=== PATIENT | female | born 1945 | race Two or more races ===

== ENCOUNTER → 2020-07-20 | Outpatient (CLI) | payer OTHER ==
[2020-07-20 09:15] LABS: MEAN CORPUSCULAR HEMOGLOBIN 31.6 pg (27.0-34.8); MEAN CORPUSCULAR HGB CONC 33.1 g/dL (32.4-35.8); MEAN PLATELET VOLUME 8.1 fL (7.4-10.4); PLATELET COUNT 283 x10^3/uL (130-400); RED BLOOD COUNT 4.08 x10^6/uL (3.82-5.3); RED CELL DISTRIBUTION WIDTH 13.2 % (9.6-15.2)
[2020-07-20 09:27] LABS: ALBUMIN 3.9 g/dL (3.4-5.0); ANION GAP 7 mmol/L (5-15); CALCIUM 9.5 mg/dL (8.5-10.1); CHLORIDE 109 mmol/L (98-107)
[2020-07-20 09:32] LABS: ALANINE AMINOTRANSFERASE 22 U/L (12-78); ALKALINE PHOSPHATASE 72 U/L (45-117); BILIRUBIN,TOTAL 0.6 mg/dL (0.2-1.0); CHOL/HDL RATIO 2.2; CHOLESTEROL, TOTAL 149 mg/dL (140-239); CREATININE 1.05 mg/dL (0.55-1.02); HDL CHOL % 46 % (28-40); HDL CHOLESTEROL (DIRECT) 69 mg/dL (40-60); LDL CHOLESTEROL,CALCULATED 55 mg/dL (54-169); LDL/HDL RATIO 0.8 (0.5-3.0); TOTAL PROTEIN 8.3 g/dL (6.4-8.2); TRIGLYCERIDES 124 mg/dL (50-200); VLDL CHOLESTEROL 25 mg/dL (0-25)
== END | disposition home or self-care (01) ==
LOC: LAB 08:48
PROVIDERS: ATTEND Family Medicine
DX: E11.22 Type 2 diabetes mellitus with diabetic chronic kidney disease (principal); I12.9 Hypertensive chronic kidney disease with stage 1 through stage 4 chronic kidney disease, or unspecified chronic kidney disease; E11.69 Type 2 diabetes mellitus with other specified complication; N18.2 Chronic kidney disease, stage 2 (mild)
CPT/HCPCS: 36415; 80053; 80061; 83036; 85027

== ENCOUNTER → 2020-09-30 | Outpatient (CLI) | payer OTHER ==
[2020-09-30 07:26] LABS: MEAN CORPUSCULAR HEMOGLOBIN 31.8 pg (27.0-34.8); MEAN CORPUSCULAR HGB CONC 32.8 g/dL (32.4-35.8); MEAN PLATELET VOLUME 7.9 fL (7.4-10.4); PLATELET COUNT 308 x10^3/uL (130-400); RED BLOOD COUNT 4.25 x10^6/uL (3.82-5.3); RED CELL DISTRIBUTION WIDTH 12.7 % (9.6-15.2)
[2020-09-30 07:39] LABS: ALBUMIN 4.1 g/dL (3.4-5.0); ANION GAP 6 mmol/L (5-15); CALCIUM 9.5 mg/dL (8.5-10.1); CHLORIDE 106 mmol/L (98-107)
[2020-09-30 07:43] LABS: ALANINE AMINOTRANSFERASE 20 U/L (12-78); ALKALINE PHOSPHATASE 77 U/L (45-117); BILIRUBIN,TOTAL 0.5 mg/dL (0.2-1.0); CHOL/HDL RATIO 2.1; CHOLESTEROL, TOTAL 160 mg/dL (140-239); CREATININE 0.99 mg/dL (0.55-1.02); HDL CHOL % 48 % (28-40); HDL CHOLESTEROL (DIRECT) 77 mg/dL (40-60); LDL CHOLESTEROL,CALCULATED 47 mg/dL (54-169); LDL/HDL RATIO 0.6 (0.5-3.0); TRIGLYCERIDES 179 mg/dL (50-200); VLDL CHOLESTEROL 36 mg/dL (0-25)
== END | disposition home or self-care (01) ==
LOC: LAB 07:05
PROVIDERS: ATTEND Family Medicine
DX: E11.22 Type 2 diabetes mellitus with diabetic chronic kidney disease (principal); I12.9 Hypertensive chronic kidney disease with stage 1 through stage 4 chronic kidney disease, or unspecified chronic kidney disease; N18.30 Chronic kidney disease, stage 3 unspecified; E78.2 Mixed hyperlipidemia
CPT/HCPCS: 36415; 80053; 80061; 82043; 83036; 85027